=== PATIENT | male | born 1980 | race Hispanic/Latino ===

== ENCOUNTER 2019-11-24 10:13 | Emergency (ER) | payer OTHER ==
[2019-11-24] MEDS ORDERED: Lorazepam 2 MG/ML VIAL SLOW IVP SCH (10:30)
[2019-11-24] MEDS ORDERED: Multivitamins, Adult 10 ML, Thiamine HCl 100 MG, Folic Acid 1 MG in Dextrose 5 %-0.45 %... IV SCH (10:30)
[2019-11-24] MEDS ORDERED: Lorazepam 2 MG/ML VIAL ONE (10:32)
[2019-11-24 10:51] LABS: Amphetamine Not Detected (NotDetected); Barbiturates Screen Not Detected (NotDetected); Benzodiazepine Screen Not Detected (NotDetected); Cocaine Metabolite Screen Not Detected (NotDetected); Medtox Control Line Valid? VALID (VALID); Medtox Reader # READER 1; Methadone Not Detected (NotDetected); Methamphetamine Not Detected (NotDetected); Opiate Screen Not Detected (NotDetected); Oxycodone Screen Not Detected (NotDetected); Phencyclidine (PCP) Not Detected (NotDetected); THC/Cannabinoid Screen Not Detected (NotDetected); Tricyclic Screen Not Detected (NotDetected)
[2019-11-24 11:18] LABS: Hemoglobin 14.8 g/dL (14.0-18.0); Mean Corpuscular HGB CONC 34.7 g/dL (32.0-36.0); Platelet Count 125 thou/uL (130-400); RBC Distribution Width 11.8 % (11.5-14.5); Red Blood Cell (RBC) Count 4.24 mill/uL (4.70-6.10); White Blood Cell (WBC) Count 9.3 thou/uL (4.8-10.8)
[2019-11-24 11:20] LABS: ALT (SGPT) 190 U/L (8-55); AST (SGOT) 175 U/L (5-34); Albumin 4.9 g/dL (3.5-5.0); Alcohol Less than 10 mg/dL (Less than 10); Alkaline Phosphatase 81 U/L (40-110); Anion Gap 20 mmol/L (10-20); BUN (Urea Nitrogen) 26 mg/dL (8.9-20.6); Bilirubin, Total 2.5 mg/dL (0.2-1.2); Calc. Creatinine Clearance 0 mL/min (70-130); Calcium 10.1 mg/dL (7.8-10.44); Carbon Dioxide 22 mmol/L (22-29); Chloride 102 mmol/L (98-107); Estimated GFR-MDRD 77; Globulin 4.1 g/dL (2.4-3.5); Glucose 102 mg/dL (70-105); Potassium 4.6 mmol/L (3.5-5.1); Sodium 139 mmol/L (136-145)
[2019-11-24 11:32] LABS: Band 1 % (5-11); Lymphocytes 18 % (21-51); MDiff Complete? YES; Monocytes 13 % (0-10); Neutrophil 68 % (42-75); Platelet Morphology Comment Appears Decreased; RBC Morphology Normal
== END 2019-11-24 12:38 ==
LOC: ERS 10:13
DX: F10.239 Alcohol dependence with withdrawal, unspecified (principal); Y90.9 Presence of alcohol in blood, level not specified; E86.0 Dehydration
CPT/HCPCS: 80053; 80306; 80307; 85025; 93005; 96361; 96374; J2060; J3411; J7042